=== PATIENT | female | born 1950 | race Caucasian/White ===

== ENCOUNTER → 2022-10-02 | Outpatient (CLI) | payer BC, MEDICARE ==
[~2022-10-02] MED LIST: ISOVUE-370 76% 100ML VIAL As Ordered ONE
== END ==
LOC: M RAD 07:36
DX: I72.8 Aneurysm of other specified arteries (principal); D64.9 Anemia, unspecified; R53.83 Other fatigue; E03.9 Hypothyroidism, unspecified; Z79.899 Other long term (current) drug therapy
CPT/HCPCS: 36415; 71046; 74174; 80053; 80061; 82306; 82607; 83036; 83550; 84436; 84443; 84480; 85027; 93005; Q9967

== ENCOUNTER → 2022-10-02 | Outpatient (CLI) | payer MEDICARE, BC ==
[2022-10-02 08:57] LABS: HEMATOCRIT 37.9 % (36.0-47.0); HEMOGLOBIN 13.3 g/dl (12.0-15.5); MEAN CORPUSCULAR HEMOGLOBIN 32.6 pg (27.0-33.0); MEAN CORPUSCULAR HGB CONC 35.1 g/dl (32.0-36.5); MEAN CORPUSCULAR VOLUME 92.9 fl (80.0-96.0); PLATELET COUNT, AUTOMATED 311 10^3/uL (150-450); RED BLOOD COUNT 4.08 10^6/uL (4.00-5.40); WHITE BLOOD COUNT 5.4 10^3/uL (4.0-10.0)
[2022-10-02 09:14] LABS: HEMOGLOBIN A1c 5.1 % (4.0-6.0)
[2022-10-02 09:20] LABS: ALBUMIN 4.2 G/DL (3.2-5.2); ALKALINE PHOSPHATASE 52 U/L (46-116); ALT/SGPT 25 U/L (7.0-40); AST/SGOT 21 U/L (<34); BILIRUBIN,TOTAL 0.9 MG/DL (0.3-1.2); BLOOD UREA NITROGEN 17 MG/DL (9-23); CALCIUM LEVEL 8.8 MG/DL (8.3-10.6); CARBON DIOXIDE LEVEL 29 MMOL/L (20-31); CHLORIDE LEVEL 107 MMOL/L (98-107); CHOLESTEROL LEVEL 149 MG/DL (<200); CHOLESTEROL RISK RATIO 2.28 (<5); CREATININE FOR GFR 0.85 MG/DL (0.55-1.30); GLOMERULAR FILTRATION RATE > 60.0 (>39); GLUCOSE, FASTING 97 MG/DL (74-106); HDL CHOLESTEROL 65.3 MG/DL (>40); IRON (FE) 76 UG/DL (50-170); LDL CHOLESTEROL 65.1 MG/DL (<100); NON-HDL-C 83.7 MG/DL; PERCENT SATURATION 29.1 % (13.2-45.0); POTASSIUM SERUM 4.1 MMOL/L (3.5-5.1); SODIUM LEVEL 139 MMOL/L (136-145); TOTAL IRON BINDING CAPACITY 261 UG/DL (250-425); TOTAL PROTEIN 6.9 G/DL (5.7-8.2); TRIGLYCERIDES LEVEL 93 MG/DL (<150)
[2022-10-02 09:21] LABS: TOTAL T3 92.9 NG/DL (60.0-181.0)
[2022-10-02 09:22] LABS: THYROID STIMULATING HORMONE 3.357 uIU/ML (0.55-4.78); THYROXINE (T4) 5.7 UG/DL (4.5-10.9); TOTAL 25(OH) VITAMIN D 50.4 NG/ML (20.0-100.0); VITAMIN B12 LEVEL 435 PG/ML (211-911)
== END ==
LOC: M RAD 07:44
PROVIDERS: ATTEND Family Medicine
DX: D64.9 Anemia, unspecified (principal); R53.83 Other fatigue; E03.9 Hypothyroidism, unspecified

== ENCOUNTER → 2023-10-06 | Outpatient (REF) | payer MEDICARE, BC | LOC: M LAB REF 12:59 | PROVIDERS: ATTEND Internal Medicine | DX: G31.84 Mild cognitive impairment of uncertain or unknown etiology (principal) ==